=== PATIENT | female | born 1950 | race Caucasian/White ===

== ENCOUNTER 2017-04-17 19:27 | Emergency (ER) | payer MEDICARE ==
[~2017-04-17] VITALS: Ht 162.6 cm; Wt 68.9 kg
[~2017-04-17 19:27] MED LIST: CALC500C16 CHEW; HYDR-3516 PO; MULT-120 PO; OMEG1CAP28 PO; ROSU1TAB8 PO
[2017-04-17 19:49] VITALS: BP 164/82; PULSE 83; RESP 18; TEMP 98.3; O2SAT 97
[2017-04-17] MEDS ORDERED: CELE200C PO (19:56)
[2017-04-17] MEDS ORDERED: NAPR500T2 PO (20:41)
[2017-04-17] MEDS ORDERED: CYCL5TAB PO (20:41)
[2017-04-17] MEDS ORDERED: KETOROLAC TROMETHAMINE 60 MG/2 ML (IM) VIAL IM ONE (21:45)
[2017-04-17] MEDS ORDERED: DIAZEPAM 5 MG TAB PO ONE (21:45)
--- NOTE | 2017-04-17 21:53 | PD ---
HPI Chief Complaint: Musculoskeletal Complaint Time Seen by Provider: 21:36 Travel History International Travel<30 days: No Contact w/Intl Traveler<30days: No Traveled to known affect area: No History of Present Illness HPI 66yo F with no PMH presents to the ED with c/o right buttocks pain radiating down right leg since yesterday. Said she bend over in the shower and then got up and felt a weird feeling. Denies any fall or trauma. Denies any fever, chest pain, sob, n/v, abdominal pain, focal weakness. Pain is from right buttocks to posterior leg and is sharp and tingling. Worst with movement. PFSH Past Medical History Blood Disorders: No Heart Rhythm Problems: No Cancer: Yes (SKIN CA) Cardiac Catheterization: No Cardiovascular Problems: No High Cholesterol: Yes Congestive Heart Failure: No Diabetes: No Diminished Hearing: No Diverticulitis: Yes Endocrine: No Genitourinary: Yes (FOLLOWING UP W UROLOGIST ) Immune Disorder: No Medical other: Yes (CHRONIC PAIN) Musculoskeletal: No Neurologic: No Psychiatric: No Reproductive: No Respiratory: No ?: Not Menopausal: Yes : 2 Para: 2 Miscarriage: 0 : 0 Tubal Ligation: Yes (1976) Past Surgical History Coronary Artery Bypass Graft: No Hysterectomy: Yes Other Surgery: Yes (see hx) Social History Alcohol Use: No Tobacco Use: No Substance Use: No Allergies-Medications (Allergen,Severity, Reaction): Coded Allergies: No Known Allergies (Verified Adverse Reaction, Unknown, 04/17/17) Reported Meds & Prescriptions Reported Meds & Active Scripts Active Reported Naproxen 500 Mg Tab 500 Mg PO BID Flexeril (Cyclobenzaprine HCl) 5 Mg Tab 5 Mg PO TID Celebrex (Celecoxib) 200 Mg Cap 200 Mg PO BID Rosuvastatin (Rosuvastatin Calcium) 20 Mg Tab 20 Mg PO HS [id number] Ethyl Esters 1 Gm Cap 1 Gm PO DAILY Hydrocodone-Acetaminophen 5-325 mg Tab 1 Tab PO Q8HR PRN Review of Systems Except as stated in HPI: all other systems reviewed are Neg Physical Exam Narrative GENERAL: 66yo F in mild distress. SKIN: Focused skin assessment warm/dry. HEAD: Atraumatic. Normocephalic. CARDIOVASCULAR: Regular rate and rhythm. No murmur appreciated. RESPIRATORY: No accessory muscle use. Clear to auscultation. Breath sounds equal bilaterally. GASTROINTESTINAL: Abdomen soft, non-tender, nondistended. MUSCULOSKELETAL: +TTP right gluteus diana. Positive straight leg test. NEUROLOGICAL: Awake and alert. No obvious cranial nerve deficits. Motor grossly within normal limits. Sensation equal bilaterally. Normal speech. PSYCHIATRIC: Appropriate mood and affect; insight and judgment normal. Data Data Last Documented VS Vital Signs Date Time Temp Pulse Resp B/P (MAP) Pulse Ox O2 Delivery O2 Flow Rate FiO2 04/17/17 19:49 98.3 83 18 164/82 (109) 97 Orders Orders Diazepam (Valium) (04/17/17 21:45) Ketorolac Inj (Toradol Inj) (04/17/17 21:45) [facility] Medical Decision Making Medical Screen Exam Complete: Yes Emergency Medical Condition: Yes Differential Diagnosis Sciatica vs. musculoskeletal pain Narrative Course 66yo F with right buttocks pain radiating down right leg. No trauma or fall. No focal neurologic deficits. Pt given valium and toradol. Pt reevaluated at bedside and pain has improved. She said she has hydrocodone for chronic back pain. Return precautions given. Diagnosis Primary Impression: Sciatica Qualified Codes: M54.31 - Sciatica, right side Patient Instructions: General Instructions Departure Forms: Tests/Procedures Additional Instructions: Please take acetaminophen or ibuprofen for pain. Take the hydrocodone you already have for break through pain. Return to the ED if symptoms worsen. Med/Other Pt SpecificInfo: No Change to Meds Disposition: 01 DISCHARGE HOME Condition: Stable Judith Peña Apr 17, 2017 21:53
== END 2017-04-17 22:46 | disposition home or self-care (01) ==
LOC: PHEFT 19:27
DX: M54.31 Sciatica, right side (principal); E78.00 Pure hypercholesterolemia, unspecified; X50.1XXA Overexertion from prolonged static or awkward postures, initial encounter; Z85.828 Personal history of other malignant neoplasm of skin; Z79.899 Other long term (current) drug therapy
CPT/HCPCS: 96372; 99283; J1885